=== PATIENT | female | born 1990 | race Hispanic/Latino ===

== ENCOUNTER 2019-01-30 20:50 | Emergency (ER) | payer SELFPAY ==
[2019-01-30 21:30] LABS: #Basophils 0.1 thou/uL (0.0-0.2); #Eosinphils 0.2 thou/uL (0.0-0.7); #Lymphocytes 2.6 thou/uL (1.20-3.40); #Monocytes 0.5 thou/uL (0.11-0.59); %Basophils 0.7 % (0.0-1.0); %Eosinophils 2.5 % (0.0-10.0); %Lymphocytes 30.8 % (21.0-51.0); %Monocytes 6.5 % (0.0-10.0); %Neutrophils 59.5 % (42.0-75.0); Hemoglobin 12.5 g/dL (12.0-16.0); Mean Corpuscular HGB CONC 34.1 g/dL (32.0-36.0); Mean Corpuscular Hemoglobin 30.5 pg (27.0-31.0); Mean Corpuscular Volume 89.4 fL (78.0-98.0); Mean Platelet Volume 7.6 fL (7.4-10.4); Platelet Count 298 thou/uL (130-400); RBC Distribution Width 11.7 % (11.5-14.5); Red Blood Cell (RBC) Count 4.11 mill/uL (4.20-5.40); White Blood Cell (WBC) Count 8.4 thou/uL (4.8-10.8)
[2019-01-30 21:59] LABS: ALT (SGPT) 32 U/L (8-55); AST (SGOT) 19 U/L (5-34); Albumin 4.3 g/dL (3.5-5.0); Alkaline Phosphatase 82 U/L (40-150); Anion Gap 12 mmol/L (10-20); BUN (Urea Nitrogen) 13 mg/dL (7.0-18.7); Bilirubin, Total 0.3 mg/dL (0.2-1.2); Calc. Creatinine Clearance 0 mL/min (70-130); Calcium 9.4 mg/dL (7.8-10.44); Carbon Dioxide 23 mmol/L (22-29); Chloride 104 mmol/L (98-107); Estimated GFR-MDRD Greater than 90; Globulin 3.5 g/dL (2.4-3.5); Glucose 143 mg/dL (70-105); Potassium 3.7 mmol/L (3.5-5.1); Protein, Total 7.8 g/dL (6.0-8.3); Sodium 135 mmol/L (136-145)
[2019-01-30 22:16] LABS: Bilirubin Negative (Negative); Blood, Urine Trace (Negative); Clarity CLEAR (Clear); Glucose, Urine (Dipstick) Negative (Negative); Leukocyte Moderate (Negative); Nitrite Negative (Negative); Protein, Urine (Dipstick) Negative (Neg-Trace); Specific Gravity, Urine 1.023 (1.002-1.036); Urobilinogen 0.2 mg/dL (0.2-1.0)
[2019-01-30 22:18] LABS: Bacteria/HPF None Seen HPF (None Seen); Hyaline Casts/LPF 0-3 HYALINE CAST LPF (0-3 Hyaline); Pathc Cast-AUWi Flag 0.27 (0-2.49)
--- NOTE | 2019-01-30 23:08 | ULT ---
Pelvic sonogram transabdominal and transvaginal imaging with duplex evaluation HISTORY: Positive test. Pelvic pain and bleeding. FINDINGS: Urinary bladder is decompressed. Uterus has a heterogeneous echotexture and measures up to 8.3 cm. Endometrium is 0.9 cm. No gestational sac is apparent within the endometrial cavity. Dominant follicle of the right ovary measures up to 2.5 cm. Left ovary measures up to 4.2 cm. Good co yue and spectral Doppler flow within each ovary. IMPRESSION: No sonographic evidence of current intrauterine gestation. No significant abnormalities a re demonstrated. Please consider close clinical and sonographic follow-up regarding the possibility of early .
[2019-01-30] MEDS ORDERED: cefTRIAXone\\ROCEPHIN 250 MG VIAL ONE (23:45)
[2019-01-30] MEDS ORDERED: Azithromycin 250 MG TAB ONE (23:45)
[2019-01-30] MEDS ORDERED: Lidocaine 1% (PF) 30 ML VIAL ONE (23:46)
[2019-01-30] MEDS ORDERED: Lidocaine 1% PF 5 ML VIAL ONE (23:48)
[2019-02-02 22:00] LABS: Chlamydia by PCR Inconclusive (NotDetected); GC by PCR Inconclusive (NotDetected)
== END 2019-01-31 00:15 | disposition home or self-care (01) ==
LOC: ERS 20:50
DX: O20.9 Hemorrhage in early pregnancy, unspecified (principal); O99.89 Other specified diseases and conditions complicating pregnancy, childbirth and the puerperium; R10.32 Left lower quadrant pain; Z3A.01 Less than 8 weeks gestation of pregnancy
CPT/HCPCS: 36415; 76856; 80053; 81003; 81015; 84702; 85025; 86900; 86901; 87077; 87086; 87480; 87491; 87510; 87591; 87660; 96372; J0696; J2001

== ENCOUNTER 2019-02-01 16:49 | Emergency (ER) | payer SELFPAY | END 2019-02-01 18:19 | disposition home or self-care (01) | LOC: ERS 16:49 | DX: Z34.91 Encounter for supervision of normal pregnancy, unspecified, first trimester (principal) | CPT/HCPCS: 36415; 84702; 99282 ==

== ENCOUNTER 2019-02-22 15:29 | Outpatient (CLI) | payer OTHER ==
--- NOTE | 2019-02-22 16:19 | ULT ---
US Pelvic W Doppler HISTORY: Pelvic pain COMPARISON: None TECHNIQUE: Multiple grayscale and color Doppler images were obtained in a transabdominal pelvic ultra sound. Spectral analysis of the Doppler waveforms of the ovaries were performed. FINDINGS: There is a live intrauterine gestation, with pole and yolk sac seen within a gestational sac, w hich which corresponds to a gestational age by ultrasound of 7 weeks 1 day[address] estimated date of delivery by ultrasound is October 10, 2019. Estimated cardiac activity is 143 bpm. No evid ence of subchorionic hemorrhage visualized. No free fluid is present. RIGHT OVARY: Dominant follicle is seen within the right ovary that measures 3.1 cm. Doppler flow is e licited. LEFT OVARY: Normal flow, without focal mass. IMPRESSION: Early live intrauterine gestation, as above. Recommend continued appropriate imaging foll ow-up
== END 2019-02-22 15:30 | disposition home or self-care (01) ==
LOC: BICULT 15:29
PROVIDERS: ATTEND Nurse Practitioner
DX: Z34.81 Encounter for supervision of other normal pregnancy, first trimester (principal)
CPT/HCPCS: 76856; 93976

== ENCOUNTER 2019-05-15 09:29 | Outpatient (CLI) | payer OTHER ==
--- NOTE | 2019-05-15 11:43 | ULT ---
OB ULTRASOUND: Date: 05/15/19 HISTORY: anatomy. FINDINGS: A single liver intrauterine gestation is seen with measurements corresponding to an estimated gestati onal age of 19 weeks/3 days and LAURIE at 10/06/2019. The estimated weight measures 300 gm or 11 o z. (85% by Hadlock criteria). measurements are as follows: BPD: 4.26 cm, 19 weeks/0 days HC: 15.96 cm, 18 weeks/6 days AC: 14.56 cm, 20 weeks/0 days FL: 3.06 cm, 19 weeks/4 days heart rate measures 135 beats/minute. Placenta is posteriorly located without evidence of place nta previa. CRISTIAN measures 9.6 cm. Cervical length measures 4.5 cm. 3 vessel cord, cord insertion, kidneys, bladder, stomach, 4 chamber heart, lateral ventricles, cerebellum, spine, lips/nose, upper/lower extremities are visualized. No definite anomalies are seen. IMPRESSION: Single live intrauterine of 19 weeks/3 days estimated gestational age and LAURIE at 10/06/2019 . POS: OFF
== END 2019-05-15 09:30 | disposition home or self-care (01) ==
LOC: BICULT 09:29
DX: Z34.82 Encounter for supervision of other normal pregnancy, second trimester (principal); Z3A.19 19 weeks gestation of pregnancy
CPT/HCPCS: 76805

== ENCOUNTER 2019-09-13 19:01 | Day surgery (SDC) | payer OTHER ==
[2019-09-13 19:48] VITALS: BMI 30.2
[2019-09-13] MEDS ORDERED: hydrALAZINE 20 MG/ML VIAL SLOW IVP PRN ×2 (19:58→21:27)
[2019-09-13] MEDS ORDERED: FLU VACC QS2019-20(6MOS UP)/PF 60 MCG/0.5 ML SYRINGE IM ONE (21:00)
--- NOTE | 2019-09-14 05:20 | SS ---
DATE OF ADMISSION: 09/13/2019 DATE OF DISCHARGE: 09/13/2019 REGULAR PHYSICIAN: Gianluca Vizcaino MD EVALUATING PHYSICIAN: Alejo Farris MD CHIEF COMPLAINT: Contractions. HISTORY OF PRESENT ILLNESS: Ms. Pb Estevez is a 29-year-old G3 , P2, with an estimated date of confinement of 10/02/2019, who presents complaining of contractions every 10-15 minutes at home. She denies ruptured membranes or vaginal bleeding. Her care has been with Dr. Vizcaino. PAST OBSTETRICAL HISTORY: Includes 2 vaginal deliveries at term. PAST MEDICAL HISTORY: None. PAST SURGICAL HISTORY: None. CURRENT MEDICATIONS: vitamins, as well as Keflex for recent UTI. ALLERGIES: NO KNOWN ALLERGIES. SOCIAL HISTORY: Denies tobacco, alcohol, or drug use. FAMILY HISTORY: Unremarkable. REVIEW OF SYSTEMS: Denies nausea, vomiting, fever, chills, ruptured membranes, or vaginal bleeding. PHYSICAL EXAMINATION: VITAL SIGNS: Vital signs are stable and she is afebrile. GENERAL: She is in no acute distress. ABDOMEN: Soft, nontender, and gravid. PELVIC: By labor nurse shows the cervix to be 3 cm dilated, 50% effaced with the vertex at -2. heart rate tracing is stable. Irregular contractions are seen. The patient is allowed to walk for an hour and a half, and she returns. Pelvic examination is repeated and is unchanged. ASSESSMENT: 1. 37 and 2/7 week intrauterine . 2. No evidence of active labor at this time. PLAN: The patient will be dismissed to home. Precautions were reviewed with her in detail. She was sent home in good condition. Job ID: [id number] [facility]
== END 2019-09-13 22:19 | disposition home or self-care (01) ==
LOC: L&D/OP 19:01
PROVIDERS: ATTEND Family Medicine
DX: O47.1 False labor at or after 37 completed weeks of gestation (principal); Z3A.37 37 weeks gestation of pregnancy
CPT/HCPCS: 99282

== ENCOUNTER 2019-09-17 10:23 | Day surgery (SDC) | payer OTHER ==
[2019-09-17 10:50] VITALS: BMI 30.2
--- NOTE | 2019-09-17 11:33 | PDOC.FPROB ---
FMR OB H&P: HPI - History of Present Illness Chief Complaint: CTX Indentification: at 36.7 weeks here for CTX/discharge History of Present Illness: 29 yo at 36.7 weeks here for CTX and discharge. CTX started yesterday, every 15 min. Discharge, white, brown starting . Has been on Keflex for a UTI. Denies LOF. Endorses FM. No hx of PTB. No dysuria, fevers, chills. No other concerns at this time. Primary Care Physician: Dr. Vizcaino FMR OB H&P: Current - Care : 3 Para: 2 Gestational age: 36.7 Due date: 10/09/19 - OB Labs Blood type: unknown RH: unknown Antibody Screen: unknown HIV: unknown RPR: unknown HepBsAg: unknown Quad screen: unknown Urine drug screen: not done Gonorrhea: unknown Chlamydia: unknown GBS: positive FMR OB H&P: History - Past Medical History PMH: Denies - OB History OB History: 2 term SVDs - INDEPENDENT TRADER History INDEPENDENT TRADER History: None - Surgical History Sx History: None - Social History Social History: Denies TAD - Family History Family History: Denies FMR OB H&P: Medications - Current Home Medications: Medication Instructions Recorded Confirmed Type Cephalexin [Keflex] 500 mg PO BID #14 capsule 08/24/19 09/17/19 Rx Allergies/Adverse Reactions: Allergies Allergy/AdvReac Type Severity Reaction Status Date / Time No Known Allergies Allergy Verified 09/17/19 10:48 FMR OB H&P: ROS - Review of Systems General: denies: fever/chills, weight/appetite/sleep changes ENT: denies: nasal congestion, rhinorrhea Cardiovascular: denies: palpitation, edema Gastrointestinal: denies: abdominal pain, indigestion, cramping, nausea, vomiting Genitourinary (Female): reports: vaginal discharge, contractions. denies: dysuria, hematuria, vaginal pain, vaginal pressure Musculoskeletal: denies: decrease range of motion, arthritis/arthralgias Neurologic: denies: syncope, loss of counsciousness Endocrine: denies: cold intolerance, heat intolerance Hematologic/Lymphatic: denies: prolonged or excessive bleeding, enlarged lymph nodes Psychological: denies: depression, anxiety FMR OB H&P: Vital Signs - Heart Tones Baseline: 150 Variability: moderate Acceleration: present Deceleration: absent [place] contractions every: 6-8min FMR OB H&P: Physical Exam - Physical Exam General: NAD, awake, alert and oriented HEENT: normocephalic and atraumatic, PERRLA, EOMI, MMM, conjunctiva clear, no scleral icterus Neck: supple, trachea midline Breast: symmetric Heart: RRR, normal S1/S2 General: CTAB, no respiratory distress, good air movement Musculoskeletal: pulses present - Pelvic Exam Vulva: normal hair distribution Cervix: no masses, no lesions, no blood SVE: FMR OB H&P: A/P - Problem List (1) with 36 completed weeks gestation Current Visit: Yes Status: Acute Code(s): Z3A.36 - 36 WEEKS GESTATION OF (2) Vaginal discharge Current Visit: Yes Status: Acute Code(s): N89.8 - OTHER SPECIFIED NONINFLAMMATORY DISORDERS OF VAGINA Disposition: 29 yo here for CTX 1. at 36.7 weeks, labor rule out -, unchanged from when in L&D 4 days ago and from clinic last weke per patient -Will get VP3 due to vaginal discharge -PO hydrate -FHT reactive & reassurin/mod/accels, inconsistent CTX 2. Vaginal discharge -vp3 3. UTI -continue keflex Pending vp3 results Discussion: Date/Time: 09/17/19 1120 This H&P was discussed with [] and [] who agree with the above documentation and plan.
--- NOTE | 2019-09-17 11:36 | PDOC.EVN ---
Event Note - Event Note Event Note: OBGYN faculty H&P History and Physical Brief Faculty Attestation Pt sen at bedside [address] Vizcaino CC: Possible CTX HPI: 29 yo H at 37 weesk 6 days with possible CTX, no LOF, no VB, no recent intercourse. Good FM. Was 3cm last check one week age. Review of Systems: Complete ROS performed and as per HPI only Past medical: Negative Past surgery: negative Allergies: negative OB HX: at term x 2 no macrosomia [employer] Supervisor HX: normal paps, no STIs Physical: Vitals wnl BP 109/60 afebrile 88 99% NAD CX 10/31/-3 no VB EFM: Reactive, no decels OB LABS: GBS POS Assessment and plan: Latent labor at early term, GBS neg ok for outpatient care Follow up as scheduled
--- NOTE | 2019-09-17 12:49 | PDOC.BPN ---
- Brief Progress Note CTX inconsistent & irregular, patient reports feeling improved VP3 positive for bobby, discussed taking monistat 7 for 7 days until resolution of sxs Pt reported lower back pain that has been going on. Based on exam and history c/ w with muscular pain. no sciatica or scc sxs. Discussed salonpas patches, heating pads. Gave labor and SCC precuations Advised to f/u with Dr. Vizcaino this week Call L&D or come back if any concerns
--- NOTE | 2019-09-18 08:12 | PRG ---
DATE OF SERVICE: 09/17/2019 ADDENDUM: To initial event note. LOCATION: Triage Bed A. In brief, I saw the patient at bedside and the findings are per the HPI and per Dr. Anitha Vazquez's note. As an addendum to my first event note, we are also waiting for a VP3 since the patient's speculum examination failed to reveal active bleeding, rupture of membranes, but did identify thick, white, clumpy discharge compatible with Sue. We have sent off a vaginitis panel 3 (VP3) and awaiting results. Based on the results, we may offer treatment for yeast, if necessary. Job ID: [id number]
[2019-09-18] MEDS ORDERED: FLU VACC QS2019-20(6MOS UP)/PF 60 MCG/0.5 ML SYRINGE IM ONE (09:00)
== END 2019-09-17 13:00 | disposition home or self-care (01) ==
LOC: L&D/OP 10:23
PROVIDERS: ATTEND Family Medicine
DX: O47.03 False labor before 37 completed weeks of gestation, third trimester (principal); O98.813 Other maternal infectious and parasitic diseases complicating pregnancy, third trimester; B37.3 Candidiasis of vulva and vagina; O23.43 Unspecified infection of urinary tract in pregnancy, third trimester; Z3A.36 36 weeks gestation of pregnancy; Z79.2 Long term (current) use of antibiotics
CPT/HCPCS: 87480; 87510; 87660

== ENCOUNTER 2019-09-28 10:06 | Inpatient (IN) | payer MEDICAID, OTHER, SELFPAY ==
[2019-09-28] MEDS ORDERED: Misoprostol 200 MCG TAB PR PRN (10:44)
[2019-09-28] MEDS ORDERED: Carboprost 250 MCG/ML AMP IM PRN (10:44)
[2019-09-28] MEDS ORDERED: Diphenoxylate HCl/Atropine Tablet PO PRN (10:44)
[2019-09-28] MEDS ORDERED: hydrALAZINE 20 MG/ML VIAL SLOW IVP PRN ×2 (10:44→15:34)
[2019-09-28] MEDS ORDERED: HYDROcodone/Acetaminophen 5/325 mg Tablet PO PRN ×3 (10:44→15:34)
[2019-09-28] MEDS ORDERED: Ondansetron PF 4 MG/2 ML Vial IVP PRN ×2 (10:44→15:34)
[2019-09-28] MEDS ORDERED: Butorphanol Tartrate 1 MG/ML VIAL SLOW IVP PRN (10:44)
[2019-09-28] MEDS ORDERED: Promethazine HCl 25 MG/ML VIAL IM PRN ×2 (10:44→15:34)
[2019-09-28] MEDS ORDERED: Methylergonovine 0.2 MG/ML VIAL IM PRN (10:44)
[2019-09-28] MEDS ORDERED: Lidocaine 1% (PF) 30 ML VIAL SC PRN (10:44)
[2019-09-28] MEDS ORDERED: NS / Oxytocin 40 units/1000ml 1,000 ML IV PRN (10:44)
[2019-09-28] MEDS ORDERED: NS w/ Oxytocin 10 units 500 ML IV SCH ×2 (10:45)
[2019-09-28] MEDS ORDERED: Penicillin G 2.5 MILL.units 2.5 MILL.UNITS in Premix Bag 1 BAG IVPB SCH (10:45)
[2019-09-28] MEDS ORDERED: Lactated Ringer's 1,000 ML IV SCH (10:45)
[2019-09-28 11:09] VITALS: BMI 28.3
[2019-09-28] MEDS ORDERED: NS / Oxytocin 40 units/1000ml 1,000 ML ONE (11:11)
[2019-09-28] MEDS ORDERED: Penicillin G Potassium 5 MILL.UNITS VIAL ONE (11:11)
[2019-09-28] MEDS ORDERED: NS w/ Oxytocin 10 units 500 ML ONE (11:12)
[2019-09-28 11:44] LABS: Hemoglobin 9.6 g/dL (12.0-16.0); Mean Corpuscular HGB CONC 32.6 g/dL (32.0-36.0); Mean Corpuscular Hemoglobin 25.1 pg (27.0-31.0); Mean Corpuscular Volume 77.2 fL (78.0-98.0); Mean Platelet Volume 9.2 fL (7.4-10.4); Platelet Count 290 thou/uL (130-400); RBC Distribution Width 15.5 % (11.5-14.5); Red Blood Cell (RBC) Count 3.83 mill/uL (4.20-5.40)
[2019-09-28] MEDS ORDERED: Penicillin G Potassium 5 MILL.UNITS in Sodium Chloride 0.9% 100 ML IVPB SCH (12:00)
[2019-09-28 12:16] LABS: Syphilis Antibody Nonreactive (Nonreactive); Syphilis Antibody Index 0.04 S/CO (<1.00 Non-Reactive)
[2019-09-28 12:17] LABS: HBSAg Index 0.28 S/CO (0-0.99); Hep B Surf Ag Non-Reactive S/CO (NonReactive)
[2019-09-28] MEDS ORDERED: FLU VACC QS2019-20(6MOS UP)/PF 60 MCG/0.5 ML SYRINGE IM ONE (13:15)
[2019-09-28] MEDS ORDERED: Benzocaine-Menthol 82.5 ML CAN TOP PRN (15:34)
[2019-09-28] MEDS ORDERED: Lanolin Ointment 7 GM TUBE TOP PRN (15:34)
[2019-09-28] MEDS ORDERED: Bisacodyl 10 MG SUPP PR PRN (15:34)
[2019-09-28] MEDS ORDERED: Milk Of Magnesia 30 ML UDCUP PO PRN (15:34)
[2019-09-28] MEDS ORDERED: diphenhydrAMINE 25 MG CAP PO PRN (15:34)
[2019-09-28] MEDS ORDERED: NS / Oxytocin 40 units/1000ml 1,000 ML IV SCH (15:34)
[2019-09-28] MEDS ORDERED: Preparation H Ointment 28 GM TUBE PR PRN (15:34)
[2019-09-28] MEDS: Ferrous Sulfate 325 MG TAB PO SCH (18:06)
[2019-09-28] MEDS: Docusate Calcium (SURFAK) 240 MG CAP PO SCH (21:26)
[2019-09-28] MEDS: Ibuprofen 800 MG TAB PO SCH (21:26)
[2019-09-29] MEDS: Ibuprofen 800 MG TAB PO SCH ×3 (05:19→21:19)
[2019-09-29 05:56] LABS: Hemoglobin 8.8 g/dL (12.0-16.0); Mean Corpuscular HGB CONC 33.5 g/dL (32.0-36.0); Mean Corpuscular Hemoglobin 25.8 pg (27.0-31.0); Mean Corpuscular Volume 77.1 fL (78.0-98.0); Mean Platelet Volume 8.8 fL (7.4-10.4); Platelet Count 249 thou/uL (130-400); RBC Distribution Width 15.4 % (11.5-14.5)
[2019-09-29] MEDS: Prenatal Vitamin 1 TAB PO SCH (08:53)
[2019-09-29] MEDS: Docusate Calcium (SURFAK) 240 MG CAP PO SCH ×2 (08:53→21:19)
[2019-09-29] MEDS: Ferrous Sulfate 325 MG TAB PO SCH ×2 (08:53→17:57)
[2019-09-29] MEDS ORDERED: Adacel (T-DAP) 0.5 ML SYRINGE IM ONE (09:00)
[2019-09-30] MEDS: Ibuprofen 800 MG TAB PO SCH ×2 (05:51→13:49)
[2019-09-30 09:19] VITALS: BP 110/59; TEMP 98.3
[2019-09-30] MEDS: Docusate Calcium (SURFAK) 240 MG CAP PO SCH (09:38)
[2019-09-30] MEDS: Ferrous Sulfate 325 MG TAB PO SCH (09:38)
[2019-09-30] MEDS: Prenatal Vitamin 1 TAB PO SCH (09:38)
[2019-09-30] MEDS ORDERED: FLU VACC QS2019-20(6MOS UP)/PF 60 MCG/0.5 ML SYRINGE IM ONE (18:00)
== END 2019-09-30 15:50 | disposition home or self-care (01) | DRG 807 ==
LOC: L&D 10:06 → 3SW 18:36
PROVIDERS: ADMIT Family Medicine; ATTEND Family Medicine
PROC: 10E0XZZ Delivery of Products of Conception, External Approach (ICD-10-PCS; principal; 2019-09-28)
DX: O99.824 Streptococcus B carrier state complicating childbirth (principal); Z37.0 Single live birth; Z3A.39 39 weeks gestation of pregnancy
CPT/HCPCS: 36415; 85027; 86780; 86850; 86900; 86901; 87340; J2540; J2590

== ENCOUNTER 2019-10-07 23:29 | Observation (INO) | payer MEDICAID ==
[2019-10-08] MEDS ORDERED: NS / Oxytocin 40 units/1000ml 1,000 ML IV SCH (00:30)
[2019-10-08 00:32] LABS: #Eosinphils 0.2 thou/uL (0.0-0.7); #Monocytes 0.7 thou/uL (0.11-0.59); #Neutrophils 5.3 thou/uL (1.40-6.50); %Basophils 0.5 % (0.0-1.0); %Eosinophils 1.7 % (0.0-10.0); %Lymphocytes 32.7 % (21.0-51.0); %Monocytes 7.7 % (0.0-10.0); %Neutrophils 57.4 % (42.0-75.0); Mean Corpuscular HGB CONC 32.4 g/dL (32.0-36.0); Mean Corpuscular Hemoglobin 25.7 pg (27.0-31.0); Mean Corpuscular Volume 79.2 fL (78.0-98.0); Mean Platelet Volume 8.1 fL (7.4-10.4); Platelet Count 415 thou/uL (130-400); RBC Distribution Width 16.4 % (11.5-14.5); Red Blood Cell (RBC) Count 3.91 mill/uL (4.20-5.40); White Blood Cell (WBC) Count 9.3 thou/uL (4.8-10.8)
[2019-10-08 00:57] LABS: ALT (SGPT) 25 U/L (8-55); AST (SGOT) 19 U/L (5-34); Albumin 3.6 g/dL (3.5-5.0); Alkaline Phosphatase 148 U/L (40-110); Anion Gap 15 mmol/L (10-20); BUN (Urea Nitrogen) 17 mg/dL (7.0-18.7); Bilirubin, Total 0.2 mg/dL (0.2-1.2); Calc. Creatinine Clearance 0 mL/min (70-130); Carbon Dioxide 22 mmol/L (22-29); Chloride 106 mmol/L (98-107); Estimated GFR-MDRD Greater than 90; Globulin 3.4 g/dL (2.4-3.5); Glucose 84 mg/dL (70-105); Potassium 3.6 mmol/L (3.5-5.1); Sodium 139 mmol/L (136-145)
[2019-10-08] MEDS ORDERED: Lidocaine 2% Jelly 5 ML TUBE ONE (02:06)
[2019-10-08] MEDS ORDERED: Fentanyl 100 MCG/2 ML VIAL ONE ×2 (02:06→04:05)
[2019-10-08] MEDS ORDERED: Midazolam HCl 2 mg/2 ml Vial ONE (02:06)
[2019-10-08] MEDS ORDERED: Misoprostol 200 MCG TAB ONE (03:10)
[2019-10-08] MEDS ORDERED: Oxytocin 10 UNITS/ML VIAL ONE (03:10)
[2019-10-08] MEDS ORDERED: Carboprost 250 MCG/ML AMP ONE (03:21)
[2019-10-08] MEDS ORDERED: Promethazine HCl 25 MG/ML VIAL SLOW IVP PRN (03:23)
[2019-10-08] MEDS ORDERED: Ondansetron HCl/PF 4 MG/2 ML Vial IVP PRN (03:23)
[2019-10-08] MEDS ORDERED: Promethazine HCl 25 MG/ML VIAL IM PRN (03:23)
[2019-10-08] MEDS ORDERED: Meperidine HCl/PF 25 MG/ML VIAL SLOW IVP PRN ×2 (03:23)
--- NOTE | 2019-10-08 07:10 | OP ---
DATE OF PROCEDURE: 10/08/2019 PREOPERATIVE DIAGNOSIS: Suspected retained products of conception. POSTOPERATIVE DIAGNOSIS: Suspected retained products of conception. PROCEDURE PERFORMED: Suction curettage of the uterus. ARMATURE AND ROTOR WINDER SURGEON: Laila Javier MD. ANESTHESIA: General endotracheal. ESTIMATED BLOOD LOSS: 200 mL. COMPLICATIONS: None. FINDINGS: 1. A 12-week size boggy uterus. 2. Moderate amount of tissue obtained upon suction curettage. 3. Uterine atony requiring Pitocin drip, Cytotec 800 mcg per rectum, and Hemabate 250 mcg IM. BRIEF PATIENT DESCRIPTION: Ms. Pb Estevez is a 29-year-old G3, now P3 , who is status post vaginal delivery 9 days ago, who presents complaining of heavy vaginal bleeding starting this afternoon. Her delivery appeared uncomplicated. Ultrasound performed in the ER demonstrated what appeared to be a large amount of retained products. The patient continued to bleed, despite Pitocin drip, and decision was made to proceed with D and C. Via an professor of poultry science, informed consent was obtained. The risks of anesthesia, bleeding, infection, as well as damage to adjacent organs requiring repair or transfusion were reviewed with her in detail , and she wished to proceed. TECHNIQUE IN DETAIL: After good general endotracheal anesthesia was achieved, the patient was prepped and draped in usual sterile fashion in the dorsal lithotomy position using the candy-cane stirrups. A weighted speculum was inserted in the vagina, and the anterior aspect of the cervix was grasped with ring forceps. There was no evidence of vaginal laceration or cervical laceration. By bimanual examination, the uterus was 12 weeks in size and boggy. The cervix was widely open. A 12 mm vac curette was placed to the fundus and suction curettage was performed. A moderate amount of clot and what appeared to be tissue was obtained. A sharp curette was then passed through all quadrants of the uterus. There were no remaining placental fragments obtained. The uterus was boggy during the procedure, and she was given Pitocin drip, Cytotec, and Hemabate with good response. At the conclusion of procedure, all instruments were removed from the vagina. Sponge and instrument counts were correct. The patient tolerated the procedure well and was taken to the recovery room in good condition. The patient will be observed, will be given Unasyn IV, and has an H and H ordered for 10:00 a.m. Job ID: [id number] [facility]TD[facility]
[2019-10-08] MEDS: Ampicillin/Sulbactam 3 GM in Sodium Chloride 0.9% 100 ML IVPB SCH ×3 (07:16→15:30)
--- NOTE | 2019-10-08 08:44 | ULT ---
PRELIMINARY REPORT/[facility]/EMERGENCY AFTER HOURS PROCEDURE: EXAM: US Pelvis, Complete. CLINICAL HISTORY: HX: 10 DAYS POST , HEAVY VAG BLEEDING. SEE NOTES ON LAST IMAGE. THANKS TECHNIQUE: Transabdominal pelvic ultrasound (complete) with image documentation. COMPARISON: None provided. FINDINGS: ENDOMETRIUM: Endometrial thickening is noted at 4.92 cm with heterogeneity and debris within. UTERUS/CERVIX: . No fibroid detected. Measures 14.6 x 8.0 x 9.9 cm consistent with a recently gravid state RIGHT OVARY: Normal follicles. No adnexal mass. Normal blood flow. Measures 2.5 x 1.2 x 1.6 cm LEFT OVARY: Normal follicles. No adnexal mass. Normal blood flow. Measures 2.9 x 1.3 x 2.0 cm FREE FLUID: No free fluid. IMPRESSION: The findings are consistent with retained products of conception given the clinical history ELECTRONICALLY SIGNED BY: Gerard Davis MD Oct 08, 2019 1:18:49 AM TRUCK ENGINE ASSEMBLER This report is intended for review by the ordering physician only, in accordance of law. If you recei ve this report in error, please call [facility] at [phone]. FINAL REPORT OB ULTRASOUND: The endometrium is thickened and heterogeneous. Findings are suggestive of retained products of gesta tion. I am in agreement with the preliminary report issued by [facility]. POS: [facility]
[2019-10-08 10:01] LABS: #Lymphocytes 0.9 thou/uL (1.20-3.40); #Monocytes 0.2 thou/uL (0.11-0.59); #Neutrophils 15.8 thou/uL (1.40-6.50); %Eosinophils 0.1 % (0.0-10.0); %Lymphocytes 5.4 % (21.0-51.0); %Monocytes 1.1 % (0.0-10.0); %Neutrophils 93.4 % (42.0-75.0); Hemoglobin 7.8 g/dL (12.0-16.0); Mean Corpuscular Hemoglobin 25.4 pg (27.0-31.0); Mean Corpuscular Volume 79.5 fL (78.0-98.0); Mean Platelet Volume 7.5 fL (7.4-10.4); Platelet Count 319 thou/uL (130-400); RBC Distribution Width 16.6 % (11.5-14.5); Red Blood Cell (RBC) Count 3.05 mill/uL (4.20-5.40); White Blood Cell (WBC) Count 16.9 thou/uL (4.8-10.8)
[2019-10-08] MEDS: Misoprostol 200 MCG TAB PO SCH ×2 (10:26→15:30)
[2019-10-08] MEDS: Lactated Ringer's 1,000 ML IV SCH ×2 (10:26→16:27)
[2019-10-08] MEDS ORDERED: Succinylcholine Chloride 20 MG/ML 10 ml SYRINGE FS ONE (11:17)
[2019-10-08] MEDS ORDERED: Dexamethasone 20 MG/5 ML VIAL ONE (11:17)
[2019-10-08] MEDS ORDERED: Lidocaine 1% PF 5 ML VIAL ONE (11:17)
[2019-10-08] MEDS ORDERED: PHENYLEPHRINE-NS 100 MCG/ML 10 ML SYRINGE ONE (11:17)
[2019-10-08] MEDS ORDERED: Ondansetron PF 4 MG/2 ML Vial ONE (11:17)
[2019-10-08] MEDS ORDERED: PROPOFOL 200 MG/20 ML VIAL ONE (11:17)
[2019-10-08] MEDS ORDERED: Lactated Ringer's 1,000 ML IV SCH (13:15)
[2019-10-08] MEDS ORDERED: Lactated Ringer's 500 ML IV SCH (13:15)
[2019-10-08 19:34] LABS: #Basophils 0.3 thou/uL (0.0-0.2); #Lymphocytes 1.6 thou/uL (1.20-3.40); #Monocytes 0.9 thou/uL (0.11-0.59); #Neutrophils 9.9 thou/uL (1.40-6.50); %Basophils 2.1 % (0.0-1.0); %Eosinophils 0.2 % (0.0-10.0); %Lymphocytes 12.8 % (21.0-51.0); %Monocytes 7.2 % (0.0-10.0); %Neutrophils 77.6 % (42.0-75.0); Hemoglobin 6.9 g/dL (12.0-16.0); Mean Corpuscular HGB CONC 32.9 g/dL (32.0-36.0); Mean Corpuscular Hemoglobin 26.1 pg (27.0-31.0); Mean Corpuscular Volume 79.3 fL (78.0-98.0); Mean Platelet Volume 7.5 fL (7.4-10.4); Platelet Count 295 thou/uL (130-400); RBC Distribution Width 16.7 % (11.5-14.5); Red Blood Cell (RBC) Count 2.65 mill/uL (4.20-5.40); White Blood Cell (WBC) Count 12.7 thou/uL (4.8-10.8)
[2019-10-08] MEDS: Ibuprofen 600 MG TAB PO PRN (22:21)
[2019-10-09] MEDS: Ibuprofen 600 MG TAB PO PRN (05:52)
[2019-10-09 08:02] LABS: Hemoglobin 7.4 g/dL (12.0-16.0); Mean Corpuscular HGB CONC 32.2 g/dL (32.0-36.0); Mean Corpuscular Hemoglobin 25.9 pg (27.0-31.0); Mean Corpuscular Volume 80.5 fL (78.0-98.0); Mean Platelet Volume 7.2 fL (7.4-10.4); Platelet Count 307 thou/uL (130-400); RBC Distribution Width 16.8 % (11.5-14.5); Red Blood Cell (RBC) Count 2.86 mill/uL (4.20-5.40); White Blood Cell (WBC) Count 9.2 thou/uL (4.8-10.8)
[2019-10-09 08:13] VITALS: BP 105/59; TEMP 97.9
--- NOTE | 2019-10-09 09:24 | DIS ---
DATE OF ADMISSION: 10/08/2019 DATE OF DISCHARGE: 10/09/2019 ADMITTING DIAGNOSES: 1. vaginal bleeding with retained products of conception. 2. Acute blood loss anemia. DISCHARGE DIAGNOSES: 1. vaginal bleeding with retained products of conception. 2. Acute blood loss anemia. 3. Suspected endometritis. PROCEDURE PERFORMED: Dilation and curettage. CONSULTATIONS: None. HOSPITAL COURSE: The patient is a 29-year-old female presenting to the emergency room about nine days out from having an uncomplicated vaginal , presenting with increased vaginal bleeding and imaging suggesting retained products of conception. The patient was taken to the operating room, where she had D and C performed with an estimated blood loss of about 500 mL between the emergency room and operating room. The course of her stay yesterday, patient appeared fatigued and tired and decision was made to keep her for observation. Hemoglobin had dropped to 7.8, hematocrit 24.3 at 9:50 in the morning down from 10. Repeat CBC last night was 6.9, hematocrit 21.0. The patient has not had any active bleeding at this time, and this morning appears to be feeling much better. She reports that she is able to ambulate without feeling overly fatigued or dizzy. She denies headache or chest pain. PHYSICAL EXAMINATION: VITAL SIGNS: This morning, blood pressure is 91/54, temperature 98.3, pulse is 77, respiratory rate of 20. GENERAL: She appears to be in no acute distress. She is alert, oriented, cooperative, and pleasant to interact with. ABDOMEN: Fundal region is still very tender to the touch. ASSESSMENT AND PLAN: The patient is a 29-year-old female who is postop day one for a emergent D and C for bleeding and retained products of conception. The patient was placed on three doses of Unasyn empirically for concerns of endometritis. Given her symptoms this morning, although afebrile and improving white count, we will be sending her home with Augmentin for the next five days with instructions to return should she experience fever, increasing bleeding or pain. The patient reports her pain is sufficiently low that ibuprofen alone should cover her. A repeat CBC is being drawn this morning given her low H and H last night just to confirm stability as the patient is young without any other comorbidities and without any severe symptomatology, decision at this time was withhold blood transfusion and allow her body time to recuperate. Repeat CBC will be followed up by myself for the oncoming physician Dr. Mcarthur. The patient has been advised to follow up with Dr. Vizcaion, her primary OB in the next week. I have also updated Dr. Vizcaino on the patient's weekend events. Job ID: [id number]
== END 2019-10-09 10:35 | disposition home or self-care (01) ==
LOC: ERS 23:29 → SDC/OP 10-08 02:46 → 3SE 10-08 04:18
PROVIDERS: ADMIT Obstetrics & Gynecology; ATTEND Obstetrics & Gynecology
PROC: 10D17ZZ Extraction of Products of Conception, Retained, Via Natural or Artificial Opening (ICD-10-PCS; principal; 2019-10-09)
DX: O72.2 Delayed and secondary postpartum hemorrhage (principal); D62 Acute posthemorrhagic anemia
CPT/HCPCS: 36415; 76856; 80053; 85025; 85027; 86850; 86900; 86901; 88305; 96361; 96365; 96367; 96376; G0378; J0295; J1100; J2001; J2250; J2405; J2590; J2704; J3010; J3490

== ENCOUNTER 2021-08-14 05:51 | Emergency (ER) | payer MEDICAID, SELFPAY ==
[2021-08-14] MEDS ORDERED: Dexamethasone 10 MG/ML VIAL ONE (06:19)
== END 2021-08-14 07:30 | disposition home or self-care (01) ==
LOC: ERS 05:51
DX: J02.8 Acute pharyngitis due to other specified organisms (principal)
CPT/HCPCS: 87081; 87430; 96372; 99284; J1100

== ENCOUNTER 2022-04-04 04:04 | Day surgery (SDC) | payer SELFPAY ==
[2022-04-04 05:30] LABS: #Eosinphils 0.2 thou/uL (0.0-0.7); #Lymphocytes 1.8 thou/uL (1.20-3.40); #Neutrophils 10.2 thou/uL (1.40-6.50); %Basophils 0.2 % (0.0-1.0); %Eosinophils 1.4 % (0.0-10.0); %Lymphocytes 13.4 % (21.0-51.0); %Monocytes 7.3 % (0.0-10.0); %Neutrophils 77.8 % (42.0-75.0); Hemoglobin 12.2 g/dL (12.0-16.0); Mean Corpuscular HGB CONC 35.4 g/dL (32.0-36.0); Mean Corpuscular Hemoglobin 32.1 pg (27.0-31.0); Mean Corpuscular Volume 90.8 fL (78.0-98.0); Mean Platelet Volume 8.2 fL (7.4-10.4); Platelet Count 261 thou/uL (130-400); RBC Distribution Width 11.6 % (11.5-14.5); Red Blood Cell (RBC) Count 3.81 mill/uL (4.20-5.40); White Blood Cell (WBC) Count 13.1 thou/uL (4.8-10.8)
[2022-04-04 05:37] LABS: BHCG - Serum Negative (NEGATIVE); Pregs Control Background? CLEAR/WHITE (CLR/WHITE); Pregs Control Bar Appear? YES (CONTROL BAR)
[2022-04-04 05:42] LABS: Bacteria/HPF 2+ HPF (None Seen); Bilirubin Negative (Negative); Blood, Urine Negative (Negative); Clarity Clear (Clear); Glucose, Urine (Dipstick) Normal (Negative); Ketone, Urine Negative (Negative); Leukocyte 75 Leu/uL (Negative); Nitrite Negative (Negative); Protein, Urine (Dipstick) Negative (Neg-Trace); RBC/HPF 0-3 HPF (0-3); Squamous Epithelial 0-3 HPF (0-3); Urobilinogen Normal mg/dL (Less than 2); WBC/HPF 0-3 HPF (0-3)
[2022-04-04] MEDS ORDERED: Morphine 4 MG/ML VIAL ONE (05:50)
[2022-04-04] MEDS ORDERED: Ondansetron PF 4 MG/2 ML Vial ONE ×2 (05:50→10:20)
[2022-04-04 05:59] LABS: ALT (SGPT) 42 U/L (8-55); AST (SGOT) 33 U/L (5-34); Alkaline Phosphatase 85 U/L (40-110); Anion Gap 15 mmol/L (10-20); BUN (Urea Nitrogen) 18 mg/dL (7.0-18.7); Bilirubin, Total 0.6 mg/dL (0.2-1.2); Calc. Creatinine Clearance 0 mL/min (70-130); Calcium 9.1 mg/dL (7.8-10.44); Carbon Dioxide 19 mmol/L (22-29); Chloride 107 mmol/L (98-107); Estimated GFR 106; Globulin 3.5 g/dL (2.4-3.5); Glucose 114 mg/dL (70-105); Lipase 23 U/L (8-78); Potassium 4.4 mmol/L (3.5-5.1); Protein, Total 7.5 g/dL (6.0-8.3); Sodium 137 mmol/L (136-145)
[2022-04-04] MEDS ORDERED: Piperacillin/Tazobactam 3.375 GM VIAL ONE (07:25)
[2022-04-04] MEDS ORDERED: SUGAMMADEX SODIUM 200 MG/2 ML VIAL ONE (08:36)
[2022-04-04] MEDS ORDERED: fentaNYL Citrate/PF 100 MCG/2 ML SYRINGE ONE (08:36)
[2022-04-04] MEDS ORDERED: Midazolam HCl 2 mg/2 ml Vial ONE (08:36)
[2022-04-04 08:39] LABS: SARS-CoV-2 NAA Rapid Test Not Detected (NotDetected)
[2022-04-04] MEDS ORDERED: Bupivacaine/Epinephrine 0.25% 30 ML VIAL ONE (09:45)
[2022-04-04] MEDS ORDERED: Lidocaine 1% MPF 2 ML VIAL ONE (10:20)
[2022-04-04] MEDS ORDERED: Dexamethasone 20 MG/5 ML VIAL ONE (10:20)
[2022-04-04] MEDS ORDERED: PROPOFOL 200 MG/20 ML VIAL ONE (10:20)
[2022-04-04] MEDS ORDERED: Ketorolac Tromethamine 30 MG/ML VIAL ONE (10:20)
[2022-04-04] MEDS ORDERED: Vecuronium 10 MG VIAL ONE (10:20)
[2022-04-04] MEDS ORDERED: Succinylcholine 200 MG/10 ml SYRINGE FS ONE (10:20)
[2022-04-04] MEDS ORDERED: HYDROcodone/Acetaminophen 5/325 mg Tablet ONE (12:47)
[2022-04-04] MEDS ORDERED: Iopamidol 370 76% 100 ML VIAL ONE (15:22)
== END 2022-04-04 14:00 | disposition home or self-care (01) ==
LOC: ERS 04:04 → SDC 09:11
PROVIDERS: ATTEND Surgery
PROC: 0DTJ4ZZ Resection of Appendix, Percutaneous Endoscopic Approach (ICD-10-PCS; principal; 2022-04-04)
DX: K35.80 Unspecified acute appendicitis (principal); N83.201 Unspecified ovarian cyst, right side; K80.20 Calculus of gallbladder without cholecystitis without obstruction; K76.0 Fatty (change of) liver, not elsewhere classified; N17.9 Acute kidney failure, unspecified; D64.9 Anemia, unspecified; I10 Essential (primary) hypertension; Z20.822 Contact with and (suspected) exposure to COVID-19
CPT/HCPCS: 74177; 80053; 81001; 83605; 83690; 84703; 85025; 88304; 96374; 96375; A4649; J1100; J1885; J2250; J2270; J2405; J2543; J2704; Q9967; U0002

== ENCOUNTER 2024-06-17 03:00 | Inpatient (IN) | payer SELFPAY ==
[2024-06-17 03:41] LABS: Bilirubin Negative (Negative); Blood, Urine Trace (Negative); CAUTI Indications for Culture Pelvic or flank pain; Clarity Clear (Clear); Glucose, Urine (Dipstick) Normal (Negative); Ketone, Urine Negative (Negative); Leukocyte Negative Leu/uL (Negative); Nitrite Negative (Negative); Protein, Urine (Dipstick) Negative (Neg-Trace); RBC/HPF 0-3 HPF (0-3); Specific Gravity, Urine 1.015 (1.002-1.036); Squamous Epithelial 0-3 HPF (0-3); Urobilinogen Normal mg/dL (Less than 2); WBC/HPF 0-3 HPF (0-3); pH, Urine 5.5 (5.0-9.0)
[2024-06-17 03:42] LABS: Bacteria/HPF 1+ HPF (None Seen)
[2024-06-17] MEDS ORDERED: Ketorolac Tromethamine 30 MG (1 mL) VIAL ONE (03:42)
[2024-06-17 03:43] LABS: Urine Culture Reflex No No
[2024-06-17] MEDS ORDERED: Morphine 4 MG/ML VIAL ONE ×2 (03:43→07:01)
[2024-06-17] MEDS ORDERED: Ondansetron PF 4 MG/2 ML Vial ONE (03:43)
[2024-06-17 04:06] LABS: #Basophils Less than 0.03 10x3/uL (0.0-0.2); %Basophils 0.3 % (0.0-1.0); %Eosinophils 6.9 % (0.0-10.0); %Lymphocytes 35.7 % (21.0-51.0); %Monocytes 8.9 % (0.0-10.0); Hematocrit 37.7 % (36.0-47.0); Hemoglobin 12.5 g/dL (12.0-16.0); Mean Corpuscular HGB CONC 33.2 g/dL (32.0-36.0); Mean Corpuscular Hemoglobin 30.3 pg (27.0-31.0); Mean Corpuscular Volume 91.3 fL (78.0-98.0); Mean Platelet Volume 10.2 fL (7.4-10.4); Platelet Count 304 10x3/uL (130-400); RBC Distribution Width 12.1 % (11.5-14.5); Red Blood Cell (RBC) Count 4.13 mill/uL (4.20-5.40)
[2024-06-17 04:14] LABS: ALT (SGPT) 25 U/L (8-55); AST (SGOT) 20 U/L (5-34); Alkaline Phosphatase 85 U/L (40-110); Anion Gap 11 mmol/L (10-20); BUN (Urea Nitrogen) 15 mg/dL (7.0-18.7); Bilirubin, Total 0.3 mg/dL (0.2-1.2); Calc. Creatinine Clearance 0 mL/min (70-130); Calcium 9.2 mg/dL (7.8-10.44); Carbon Dioxide 23 mmol/L (22-29); Chloride 107 mmol/L (98-107); Estimated GFR 119; Globulin 3.3 g/dL (2.4-3.5); Glucose 98 mg/dL (70-105); Lipase 20 U/L (8-78); Potassium 3.9 mmol/L (3.5-5.1); Protein, Total 7.3 g/dL (6.0-8.3); Sodium 137 mmol/L (136-145)
[2024-06-17 05:20] LABS: BHCG - Serum Negative (NEGATIVE); Pregs Control Background? CLEAR/WHITE (CLR/WHITE); Pregs Control Bar Appear? YES (CONTROL BAR)
[2024-06-17 06:29] LABS: Pregnancy Test - Urine (BHCG) Negative (Negative); Pregu Control Background? CLEAR/WHITE (CLR/WHITE); Pregu Control Bar Appear? YES (CONTROL BAR); Specific Gravity 1.015 (1.002-1.036)
[2024-06-17] MEDS ORDERED: Sodium Chloride 0.9% 100 ML ONE (10:17)
[2024-06-17] MEDS ORDERED: Piperacillin/Tazobactam 3.375 GM VIAL ONE (10:17)
[2024-06-17] MEDS ORDERED: Ipratropium/Albuterol 3 ML NEB NEB PRN (10:38)
[2024-06-17 12:10] VITALS: BMI 25.0
[2024-06-17] MEDS: Ondansetron PF 4 MG/2 ML Vial IVP PRN (14:18)
[2024-06-17] MEDS: Ketorolac Tromethamine 30 MG (1 mL) VIAL IVP SCH (14:27)
[2024-06-17] MEDS: traMADol HCl 50 MG TAB PO SCH (14:27)
[2024-06-17] MEDS: Sodium Chloride 0.9% 1,000 ML IV SCH (14:35)
[2024-06-17] MEDS: TETANUS, DIPHTHERIA TOX,ADULT (TDVAX) 0.5 ML VIAL IM ONE (17:47)
[2024-06-17] MEDS: Ketorolac Tromethamine 30 MG (1 mL) VIAL ONE (17:47)
[2024-06-17] MEDS: Morphine 2 MG/ML VIAL SLOW IVP PRN (18:15)
[2024-06-17] MEDS: traMADol HCl 50 MG TAB PO PRN (19:56)
[2024-06-18 04:26] LABS: #Basophils Less than 0.03 10x3/uL (0.0-0.2); %Basophils 0.3 % (0.0-1.0); %Eosinophils 3.1 % (0.0-10.0); %Lymphocytes 25.6 % (21.0-51.0); %Monocytes 8.3 % (0.0-10.0); %Neutrophils 62.4 % (42.0-75.0); Hematocrit 32.7 % (36.0-47.0); Hemoglobin 10.8 g/dL (12.0-16.0); Mean Corpuscular Hemoglobin 30.4 pg (27.0-31.0); Mean Corpuscular Volume 92.1 fL (78.0-98.0); Mean Platelet Volume 10.5 fL (7.4-10.4); Platelet Count 253 10x3/uL (130-400); Red Blood Cell (RBC) Count 3.55 mill/uL (4.20-5.40)
[2024-06-18 04:47] LABS: ALT (SGPT) 21 U/L (8-55); AST (SGOT) 14 U/L (5-34); Albumin 3.3 g/dL (3.5-5.0); Alkaline Phosphatase 62 U/L (40-110); Anion Gap 8 mmol/L (10-20); BUN (Urea Nitrogen) 7 mg/dL (7.0-18.7); Bilirubin, Direct 0.1 mg/dL (0.1-0.3); Bilirubin, Total 0.4 mg/dL (0.2-1.2); Calc. Creatinine Clearance 106 mL/min (70-130); Carbon Dioxide 23 mmol/L (22-29); Chloride 109 mmol/L (98-107); Estimated GFR 117; Glucose 90 mg/dL (70-105); Potassium 3.8 mmol/L (3.5-5.1); Protein, Total 5.9 g/dL (6.0-8.3); Sodium 136 mmol/L (136-145)
[2024-06-18] MEDS: Sodium Chloride 0.9% 1,000 ML IV SCH (16:35)
[2024-06-18] MEDS: Morphine 2 MG/ML VIAL SLOW IVP SCH (23:28)
[2024-06-19 05:09] LABS: #Basophils Less than 0.03 10x3/uL (0.0-0.2); %Basophils 0.1 % (0.0-1.0); %Eosinophils 3.2 % (0.0-10.0); %Monocytes 7.5 % (0.0-10.0); %Neutrophils 53.1 % (42.0-75.0); Hematocrit 31.9 % (36.0-47.0); Hemoglobin 10.9 g/dL (12.0-16.0); Mean Corpuscular HGB CONC 34.2 g/dL (32.0-36.0); Mean Corpuscular Hemoglobin 31.1 pg (27.0-31.0); Mean Corpuscular Volume 90.9 fL (78.0-98.0); Mean Platelet Volume 10.1 fL (7.4-10.4); Platelet Count 252 10x3/uL (130-400); RBC Distribution Width 11.9 % (11.5-14.5); Red Blood Cell (RBC) Count 3.51 mill/uL (4.20-5.40)
[2024-06-19 05:26] LABS: ALT (SGPT) 21 U/L (8-55); AST (SGOT) 16 U/L (5-34); Albumin 3.3 g/dL (3.5-5.0); Alkaline Phosphatase 60 U/L (40-110); Anion Gap 10 mmol/L (10-20); BUN (Urea Nitrogen) 7 mg/dL (7.0-18.7); Bilirubin, Total 0.4 mg/dL (0.2-1.2); Calc. Creatinine Clearance 111 mL/min (70-130); Calcium 8.2 mg/dL (7.8-10.44); Carbon Dioxide 22 mmol/L (22-29); Chloride 107 mmol/L (98-107); Estimated GFR 119; Globulin 2.9 g/dL (2.4-3.5); Glucose 67 mg/dL (70-105); Potassium 3.4 mmol/L (3.5-5.1); Protein, Total 6.2 g/dL (6.0-8.3); Sodium 136 mmol/L (136-145)
[2024-06-19] MEDS ORDERED: EPINEPHrine 1 MG/ML VIAL ONE (14:33)
[2024-06-19] MEDS ORDERED: Lidocaine 1% PF 5 ML VIAL ONE (18:23)
[2024-06-19] MEDS ORDERED: Dexamethasone 4 mg/ml Vial ONE (18:23)
[2024-06-19] MEDS ORDERED: Ondansetron PF 4 MG/2 ML Vial ONE (18:23)
[2024-06-19] MEDS ORDERED: fentaNYL PF 100 MCG/2 ML SYRINGE ONE (18:23)
[2024-06-19] MEDS ORDERED: PROPOFOL 40 ML ONE (18:24)
[2024-06-19] MEDS ORDERED: SUGAMMADEX SODIUM 200 MG/2 ML VIAL ONE (18:24)
[2024-06-19] MEDS ORDERED: Ketorolac Tromethamine 30 MG (1 mL) VIAL ONE (18:24)
[2024-06-19] MEDS ORDERED: Rocuronium Bromide 10 MG/ML (10ML VIAL) ONE (18:33)
[2024-06-19] MEDS ORDERED: PHENYLEPHRINE-NS 100 MCG/ML 10 ML SYRINGE ONE (18:40)
[2024-06-19] MEDS ORDERED: CEFAZOLIN 1 GM VIAL ONE ×2 (18:40)
[2024-06-19] MEDS ORDERED: fentaNYL 50 mcg/mL 1 mL Vial ONE ×3 (19:24→19:48)
[2024-06-19] MEDS ORDERED: Dextrose 50% Abboject 50 ML SYRINGE SLOW IVP PRN (19:34)
[2024-06-19] MEDS ORDERED: Mag-Al 1200 mg/1200 mg/30 ML UDCUP PO PRN (19:34)
[2024-06-19] MEDS ORDERED: Glucagon 1 MG/ML KIT IM PRN (19:34)
[2024-06-19] MEDS ORDERED: Dextrose 5% in Water 1,000 ML IV PRN (19:34)
[2024-06-19] MEDS ORDERED: HYDROcodone/Acetaminophen 10/325 mg Tablet PO PRN (19:34)
[2024-06-19] MEDS ORDERED: Ondansetron PF 4 MG/2 ML Vial IVP PRN (19:34)
[2024-06-19] MEDS ORDERED: Morphine 4 MG/ML VIAL ONE (20:00)
[2024-06-19] MEDS: D5 1/2 NS w/20 mEq KCL 1,000 ML IV SCH (21:56)
[2024-06-19] MEDS: Famotidine 20 MG TAB PO SCH ×2 (22:14)
[2024-06-19] MEDS: Ketorolac Tromethamine 30 MG (1 mL) VIAL IVP SCH (23:00)
[2024-06-20] MEDS: Enoxaparin 30 MG (0.3 mL) SYRINGE SC SCH (09:30)
[2024-06-20 12:46] VITALS: BP 100/66; TEMP 98
== END 2024-06-20 13:58 | disposition home or self-care (01) | DRG 419 ==
LOC: ERS 03:00 → SURG A 10:40 → OBSVTOIN 06-19 08:50
PROVIDERS: ADMIT Surgery; ATTEND Surgery
PROC: 0FT44ZZ Resection of Gallbladder, Percutaneous Endoscopic Approach (ICD-10-PCS; principal; 2024-06-19)
PROC: 8E0W4CZ Robotic Assisted Procedure of Trunk Region, Percutaneous Endoscopic Approach (ICD-10-PCS; 2024-06-19)
DX: K80.62 Calculus of gallbladder and bile duct with acute cholecystitis without obstruction (principal); Z90.49 Acquired absence of other specified parts of digestive tract; R73.03 Prediabetes
CPT/HCPCS: 36415; 74176; 76705; 80053; 80076; 81001; 81025; 83690; 84703; 85025; 88304; 96365; 96375; 96376; C1889; G0378; J0171; J0690; J1100; J1650; J1885; J2272; J2405; J2543; J2704; J3010; J3480; J7030; S2900